=== PATIENT | male | born 1985 | race Caucasian/White ===

== ENCOUNTER 2022-06-11 14:41 | Emergency (ER) | payer OTHER, SELFPAY ==
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
--- NOTE | ~2022-06-11 | XR_ITS ---
EXAMINATION: XR cervical spine 3V CLINICAL INFORMATION: Pain COMPARISON: None TECHNIQUE: 3 views of the cervical spine were obtained. FINDINGS: The cervical spine is visualized to the level of C6-C7 on the lateral view. Reversal of the usual cervical spine lordosis centered at C4-C5 Vertebral body heights are maintained. Lateral masses of C1 are well aligned on C2. Visualized portion of the dens is intact. Advanced degenerative disc disease at C4-C5 through C6-C7, manifested by loss of disc space height and facet arthropathy. No prevertebral soft tissue swelling. XR/XR cervical spine 3V IMPRESSION: * Moderate spondylosis of the cervical spine, as above detailed, with reversal of the usual cervical spine lordosis centered at C5-C6.
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
[2022-06-11 15:30] VITALS: BP 150/97; PULSE 86; RESP 18; TEMP 37; O2SAT 98; BMI 30.9
[2022-06-11] MEDS: Ketorolac Tromethamine 30 MG/ML VIAL IM (17:59)
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
== END 2022-06-11 19:53 | disposition home or self-care (01) ==
PROVIDERS: Emergency Provider Student in an Organized Health Care Education/Training Program; PCP Internal Medicine
DX: S16.1XXA Strain of muscle, fascia and tendon at neck level, initial encounter (principal); S29.012A Strain of muscle and tendon of back wall of thorax, initial encounter; S39.012A Strain of muscle, fascia and tendon of lower back, initial encounter; M54.2 Cervicalgia; V43.52XA Car driver injured in collision with other type car in traffic accident, initial encounter; Y93.9 Activity, unspecified; Y92.410 Unspecified street and highway as the place of occurrence of the external cause; Y99.9 Unspecified external cause status; Z79.899 Other long term (current) drug therapy
CPT/HCPCS: 72040; 72072; 72100; 96372; 99283; 99284; J1885

== ENCOUNTER 2023-07-01 12:11 | Emergency (ER) | payer MEDICARE, OTHER, MEDICAID, SELFPAY ==
--- NOTE | ~2023-07-01 | US_ITS ---
EXAMINATION: US VENOUS ULTRASOUND WITH DOPPLER LOWER EXTREMITY, RIGHT CLINICAL INFORMATION: Right popliteal pain. COMPARISON: None available. TECHNIQUE: Ultrasound of the deep veins is performed from the hip to the calf with compression sonography and color and pulse Doppler assessment. Spectral analysis with color-flow imaging is performed. FINDINGS: There is normal venous compression and respiratory variation and augmented flow. The visualized common femoral vein, superficial femoral vein, profunda femoral vein, popliteal vein, and the trifurcation region shows no evidence of deep venous thrombosis. There is no significant popliteal fossa cyst. If the patient's symptoms persist, followup ultrasound in 5 days 7 days might be of value to exclude proximal propagation from a non-visualized calf vein. US/US venous duplex LE RT IMPRESSION: No DVT demonstrated in the right lower extremity.
--- NOTE | ~2023-07-01 | XR_ITS ---
EXAMINATION: XR CHEST 2 VIEW CLINICAL INFORMATION: Chest pain COMPARISON: None TECHNIQUE: PA and lateral views of the chest obtained. FINDINGS: The lungs are clear. There are no pleural effusions. The cardiomediastinal silhouette is normal. No rib fracture, bone lesion or pneumothorax is detected. XR/XR chest 2V IMPRESSION: No acute cardiopulmonary disease.
--- NOTE | 2023-07-01 12:12 | ECG_ITS ---
Test Reason : CHEST PAIN Blood Pressure : / mmHG Vent. Rate : 081 BPM Atrial Rate : 081 BPM P-R Int : 150 ms QRS Dur : 080 ms QT Int : 372 ms P-R-T Axes : 019 -07 017 degrees QTc Int : 432 ms Normal sinus rhythm with sinus arrhythmia Normal ECG No previous ECGs available Referred By: Ekta Fuentes Electronically Signed By:REUBEN MIDDLETON
[2023-07-01 12:27] VITALS: BP 145/95; PULSE 83; RESP 18; TEMP 36.3; O2SAT 97; BMI 33.5
--- NOTE | 2023-07-01 12:27 | ED_ITS ---
HPI - General Adult General Chief complaint: Chest Pain Stated complaint: chest pain Time Seen by Provider: 07/01/23 12:58 Source: patient Mode of arrival: ambulatory Limitations: no limitations History of Present Illness HPI narrative: 37-year-old male with no major medical problems presents with chest pain. The chest pain is left upper chest. This sharp stabbing pain. Pain is moderate to severe in nature. There is no clear relieving or exacerbating features. When he gets the pain lasts approximately 5 minutes. He has had multiple nonexertional episodes. Sometimes he has associated left arm numbness. The pain has been intermittent since yesterday afternoon. He does have some right popliteal pain but no lower extremity edema. He has no personal history of PE or DVT. However, his father approximately 20 years ago with a DVT/PE. Patient is fairly active. He has had no trauma, falls, injuries. He has had no significant new heavy lifting events. Patient denies any fevers, chills, cough or mucus production. Related Data Previous Rx's Medication Instructions Recorded acetaminophen 500 mg tablet 500 mg PO Q6H PRN fever or pain 06/11/22 (Tylenol Extra Strength) #14 tabs cyclobenzaprine 5 mg tablet 5 mg PO Q8H PRN pain (scale score 06/11/22 7-10) 5 days #14 tabs lidocaine 5 % topical patch 1 patch topical DAILY PRN pain #30 06/11/22 (Lidoderm) ea naproxen 500 mg tablet 500 mg PO BID PRN pain 10 days #20 06/11/22 tabs Allergies Allergy/AdvReac Type Severity Reaction Status Date / Time No Known Allergies Allergy Unverified 08/15/20 16:04 Review of Systems Review of Systems: CONSTITUTIONAL: Denies weight loss, fever and chills. HEENT: Denies changes in vision and hearing. RESPIRATORY: Denies SOB and cough. CV: Denies palpitations + CP. GI: Denies abdominal pain, nausea, vomiting and diarrhea. : Denies dysuria and urinary frequency. MSK: + myalgia and joint pain. SKIN: Denies rash and pruritus. NEUROLOGICAL: Denies headache and syncope. PSYCHIATRIC: Denies recent changes in mood. Denies anxiety and depression. All other ROS are negative unless in HPI [facility] Social History Social History Alcohol intake: current Alcohol intake frequency: holidays/special occasions only Smoked in Last 30 Days: No Use of substances other than those prescribed or required for medical reasons: No Advance Directives: No Advance Directives Information Provided: No Physical Exam ED Vital Signs: Vital Signs - 24 hr 07/01/23 12:27 07/01/23 13:26 07/01/23 14:00 Temperature 97.3 F 98.0 F Pulse Rate 83 73 64 Respiratory Rate 18 18 18 Blood Pressure 145/95 H 154/107 H 113/87 Pulse Oximetry 97 96 96 Oxygen Delivery Method Room Air Room Air BMI result Body Mass Index 33.5 GEN: Well developed, no acute distress, alert, oriented HEENT: Normocephalic, atraumatic, normal external ears, nose appears normal, no oropharyngeal edema or exudates Eyes: Normal to appearance Neck: Supple, no lymphadenopathy Respiratory: Talks in complete sentences, no respiratory distress, clear to auscultation bilaterally Cardiovascular: Regular rate and rhythm, no murmurs rubs or gallops Abdomen: Soft, nontender, nondistended, no guarding, no rebound Back: No CVA tenderness Extremities: No clubbing cyanosis or edema Neurologic: No focal neurologic deficits, cranial nerves 2-12 intact, strength is 5/5 bilaterally Skin: No rash Course Course Course Narrative: This is a rapid medical exam: Additional HPI, ROS, PE not included below will be deferred to primary provider. Patient is a 37-year-old male presenting to the emergency department with complaint of intermittent episodes of chest pain for the past several days. States some days it was one episode, today has had several episodes. Also reports right medial thigh pain which began today, denies injury to the area. Denies personal history of blood clots but states that his father from complications related to a DVT. BP elevated in triage, denies hx of HTN. Plan: EKG, labs, CXR Reevaluation(s) Reevaluation #1: The workup is complete. Cardiac enzymes are negative. That is essentially diagnostic actor 1 day of atypical chest pain with a nonischemic EKG. Additionally, he is ultrasound negative for DVT, D-dimer is negative. I do not believe patient warrants an emergent CT scan and a sterile out pulmonary embolus given no evidence of right heart strain, no sinus tachycardia and no hypoxia. Patient is aware that he can return any time for progressive symptoms at which point would recommend a CT angiogram. He has 0 comfortable with this plan. He will be discharged home. Time: 15:25 Medical Decision Making Medical Decision Making MDM Narrative: 37-year-old male with no significant medical problems but a past family history of DVT in his father side presents with left-sided chest pain that is atypical in nature, sharp, stabbing intermittent and brief in nature. Patient's ex amination is unremarkable. EKG done at triage demonstrates no acute ischemic changes or no evidence of right heart strain. I will obtain routine laboratory analysis including a troponin. If patient's troponin is negative, 1 day of intermittent atypical symptoms would be suggestive against myocardial infarction/NSTEMI. Will order a D-dimer on this particular patient. His PERC criteria are 0: PERC Rule for Pulmonary Embolism from [email or web address] on 07/01/2023 All calculations should be rechecked by clinician prior to use RESULT SUMMARY: 0 criteria No need for further workup, as <2% chance of PE. If no criteria are positive and clinician?s pre-test probability is <15%, PERC Rule criteria are satisfied. INPUTS: Age >=0 ?> 0 = No HR >=00 ?> 0 = No O? sat on room air ?> 0 = No Unilateral leg swelling ?> 0 = No Hemoptysis ?> 0 = No Recent surgery or trauma ?> 0 = No Prior PE or DVT ?> 0 = No Hormone use ?> 0 = No . However, given his family history this does at an at layer of suspicion. I will also obtain an ultrasound of the right lower extremity given his popliteal pain to rule out DVT. If these tests are negative, will discuss the need to perform a CT angiogram of the chest which I doubt is necessary at this time given normal vital signs, no evidence of right heart strain, no sinus tachycardia, no evidence of hypoxia, etc.. Atypical chest pain, musculoskeletal chest pain, chest wall pain, myocardial infarction, pericarditis, myocarditis, anxiety, stress, reflux, pneumonia, pulmonary embolus, dissection Arguing against musculoskeletal chest pain is and inability to reproduce the pain., pericarditis is unlikely given the lack of position allergy, no evidence of diffuse CT elevations and ST depressions. There is no evidence of pneumonia on examination, no hypoxia, cough, dyspnea. Is unlikely to be dissection given normal pulses bilaterally, atypical story and will obtain an x-ray to rule out widened mediastinum and apical cap. Differential Diagnosis Differential Diagnoses: The differential diagnosis associated with the presentation includes (See above) Admission/Observation Consideration of admission/observation: Escalation of care including admission/observation considered Lab Data MDM Lab Attestation statement: I reviewed the patient's lab results. 07/01/23 12:07/01/23 12: Labs: Lab Results 07/01/23 07/01/23 07/01/23 Range/Units 12:26 12: 12: WBC 6.8 (4.8-10.8) X10*3/uL RBC 4.94 (4.60-5.80) X10*6/uL Hgb 15.5 (14.0-18.0) g/dl Hct 44.8 (42.0-52.0) % MCV 90.7 (80.0-98.0) fL MCH 31.4 (27.0-33.0) pg MCHC 34.6 (31.0-36.0) g/dl RDW 11.7 (11.0-16.0) % Plt Count 290 (160-400) X10*3/uL MPV 9.4 (9.4-12.4) fL Immature Gran % (Auto) 0.3 (0.0-0.4) % Neut % (Auto) 62.2 (45-73) % Lymph % (Auto) 28.4 (20-40) % Bleck[place] % (Auto) 8.1 (2-11) % Eos % (Auto) 0.7 (0-4) % Baso % (Auto) 0.3 (0-2) % Lymph # (Auto) 1.9 (1.2-4.9) X10*3/uL [place]ck[place] # (Auto) 0.6 (0.1-1.2) X10*3/uL Eos # (Auto) 0.1 (0.0-0.4) X10*3/uL Baso # (Auto) 0.0 (0.0-0.2) X10*3/uL Abs Immat Gran (auto) 0.02 (0.00-0.03) X10*3/uL Absolute Neuts (auto) 4.2 (2.0-8.3) x10*3/uL Absolute Nucleated RBC 0.000 (0.0-0.012) X10*3/uL Nucleated RBC % (auto) 0.0 (0.0-0.2) /100WBC PT (11.1-13.3) SEC INR (0.9-1.1) D-Dimer High Sensitivty NG/ML Sodium 141 (135-145) mmol/L Potassium 3.5 (3.3-5.1) mmol/L Chloride 105 (96-108) mmol/L Carbon Dioxide 20 L (22-29) mmol/L Anion Gap 20 (12-20) BUN 14 (9-16) mg/dL Creatinine 0.87 (0.5-1.4) mg/dL Estim Creat Clear Calc 110.3 Estimated GFR > 60 Random Glucose 169 H (60-115) mg/dL Calcium 9.2 (8.4-10.2) mg/dL Total Bilirubin 0.8 (0.0-1.0) mg/dL AST 25 (5-37) U/L ALT 31 (0-40) U/L Alkaline Phosphatase 63 (39-117) U/L Troponin I High Sens < 2.7 (<3.5-35.0) ng/L Total Protein 6.9 (6.5-8.0) g/dL Albumin 4.1 (3.5-5.0) g/dL 07/01/23 07/01/23 Range/Units 12:26 13:27 WBC (4.8-10.8) X10*3/uL RBC (4.60-5.80) X10*6/uL Hgb (14.0-18.0) g/dl Hct (42.0-52.0) % MCV (80.0-98.0) fL MCH (27.0-33.0) pg MCHC (31.0-36.0) g/dl RDW (11.0-16.0) % Plt Count (160-400) X10*3/uL MPV (9.4-12.4) fL Immature Gran % (Auto) (0.0-0.4) % Neut % (Auto) (45-73) % Lymph % (Auto) (20-40) % Bleck[place] % (Auto) (2-11) % Eos % (Auto) (0-4) % Baso % (Auto) (0-2) % Lymph # (Auto) (1.2-4.9) X10*3/uL [place]ck[place] # (Auto) (0.1-1.2) X10*3/uL Eos # (Auto) (0.0-0.4) X10*3/uL Baso # (Auto) (0.0-0.2) X10*3/uL Abs Immat Gran (auto) (0.00-0.03) X10*3/uL Absolute Neuts (auto) (2.0-8.3) x10*3/uL Absolute Nucleated RBC (0.0-0.012) X10*3/uL Nucleated RBC % (auto) (0.0-0.2) /100WBC PT 11.5 (11.1-13.3) SEC INR 0.9 (0.9-1.1) D-Dimer High Sensitivty < 150 NG/ML Sodium (135-145) mmol/L Potassium (3.3-5.1) mmol/L Chloride (96-108) mmol/L Carbon Dioxide (22-29) mmol/L Anion Gap (12-20) BUN (9-16) mg/dL Creatinine (0.5-1.4) mg/dL Estim Creat Clear Calc Estimated GFR Random Glucose (60-115) mg/dL Calcium (8.4-10.2) mg/dL Total Bilirubin (0.0-1.0) mg/dL AST (5-37) U/L ALT (0-40) U/L Alkaline Phosphatase (39-117) U/L Troponin I High Sens (<3.5-35.0) ng/L Total Protein (6.5-8.0) g/dL Albumin (3.5-5.0) g/dL Troponin is negative. He does have an elevated blood sugar which is likely an acute stress reaction. This was discussed with the patient he will follow up as an outpatient. Independent Interpretation I performed an independent interpretation of an: EKG (Sinus rhythm heart rate 81, normal intervals, no acute ST elevations depressions, no ischemic changes. No evidence of right heart strain.), Plain X-Ray (S: No acute cardiopulmonary disease) and Ultrasound (Duplex ultrasound right lower extremity negative for DVT) Radiology Impression Discussion of test interpretation with radiology: I have reviewed the radiologist's reading. Radiologist Impression: XR/XR chest 2V IMPRESSION: No acute cardiopulmonary disease. ? Dictated By: Juan Roy MD Signed By: <Electronically signed by Juan Roy MD in [place]> 07/01/23 1254 . US/US venous duplex LE RT IMPRESSION: No DVT demonstrated in the right lower extremity. Dictated By: Jens Grullon MD Signed By: <Electronically signed by Jens Grullon MD in [place]> 07/01/23 1508 Prescription Management I considered prescription management with: Pain Medication Chronic Conditions Patient?s care impacted by: Other (Elevated blood pressure) Discharge Plan Discharge Clinical Impression: Chest pain, Hyperglycemia Patient Disposition: Home, Self-Care Instructions: Chest Pain (ED) Additional Instructions: Return any time for progressive chest pain, shortness of breath, palpitation or any other concerning symptoms. At that time, may be appropriate for you to have a CT scan angiogram of the chest. Otherwise follow-up with her primary care provider within the next few days. Prescriptions: No Action lidocaine [Lidoderm] 5 % adhesive patch,medicated 1 patch topical DAILY MDD remove after 12 hours PRN (Reason: pain) Qty: 30 0RF Rx Instructions: leave on most painful area for up to 12 hrs cyclobenzaprine 5 mg tablet 5 mg PO Q8H PRN (Reason: pain (scale score 7-10)) 5 Days Qty: 14 0RF acetaminophen [Tylenol Extra Strength] 500 mg tablet 500 mg PO Q6H PRN (Reason: fever or pain) Qty: 14 0RF naproxen 500 mg tablet 500 mg PO BID PRN (Reason: pain) 10 Days Qty: 20 0RF Referrals: Jermain Burgos MD [Primary Care Provider] - 2 days
[2023-07-01 12:32] LABS: MANUAL DIFF FLAG NO
[2023-07-01 12:34] LABS: Basophils Percent Auto 0.3 % (0-2); Eosinophils Absolute Auto 0.1 X10*3/uL (0.0-0.4); Eosinophils Percent Auto 0.7 % (0-4); Hematocrit 44.8 % (42.0-52.0); Hemoglobin 15.5 g/dl (14.0-18.0); Imm Gran Abs Auto 0.02 X10*3/uL (0.00-0.03); Imm Gran Pct Auto 0.3 % (0.0-0.4); Lymphocytes Absolute Auto 1.9 X10*3/uL (1.2-4.9); Lymphocytes Percent Auto 28.4 % (20-40); Mean Corpuscular HGB Conc 34.6 g/dl (31.0-36.0); Mean Corpuscular Hemoglobin 31.4 pg (27.0-33.0); Mean Corpuscular Volume 90.7 fL (80.0-98.0); Mean Platelet Volume 9.4 fL (9.4-12.4); Monocytes Absolute Auto 0.6 X10*3/uL (0.1-1.2); Monocytes Percent Auto 8.1 % (2-11); Neutrophils Absolute Auto 4.2 x10*3/uL (2.0-8.3); Neutrophils Percent Auto 62.2 % (45-73); Platelet Count 290 X10*3/uL (160-400); Red Blood Count 4.94 X10*6/uL (4.60-5.80); Red Cell Distribution Width 11.7 % (11.0-16.0); White Blood Count 6.8 X10*3/uL (4.8-10.8)
[2023-07-01 12:39] LABS: INTERNATIONAL NORM RATIO 0.9 (0.9-1.1); Prothrombin Time 11.5 SEC (11.1-13.3)
[2023-07-01 12:54] LABS: Alanine Aminotransferase 31 U/L (0-40); Albumin Level 4.1 g/dL (3.5-5.0); Alkaline Phosphatase 63 U/L (39-117); Anion Gap 20 (12-20); Aspartate Amino Transferase 25 U/L (5-37); Bilirubin Total 0.8 mg/dL (0.0-1.0); Blood Urea Nitrogen 14 mg/dL (9-16); Calcium 9.2 mg/dL (8.4-10.2); Carbon Dioxide 20 mmol/L (22-29); Chloride 105 mmol/L (96-108); Creatinine Clr Calc Pharmacy 110.3; Estimated Glomerular Filt Rate > 60; Glucose Random 169 mg/dL (60-115); Potassium 3.5 mmol/L (3.3-5.1); Sodium 141 mmol/L (135-145); Total Protein 6.9 g/dL (6.5-8.0)
[2023-07-01 13:07] LABS: Troponin-I High Sensitivity < 2.7 ng/L (<3.5-35.0)
[2023-07-01 13:26] VITALS: BP 154/107; PULSE 73; RESP 18; O2SAT 96
--- NOTE | 2023-07-01 13:34 | PC.NURSE ---
pt a&ox3, vss, nsr on the court recording monitor, pt c/o 2/10 chest pain that radiates to the LUE. pt verbalizes numbness/tingling down the left arm. that he has occasional nausea/palpitations but denies any other symptoms. tech alka labs and sent them. call schafer placed within reach.
[2023-07-01 14:00] VITALS: BP 113/87; PULSE 64; RESP 18; TEMP 36.7; O2SAT 96
[2023-07-01 14:10] LABS: D Dimer High Sensitivity < 150 NG/ML
--- NOTE | 2023-07-01 14:21 | PC.NURSE ---
a&ox3, vss, nsr on the chip mucker. pt verbalizing no change in pain level in his chest and LUE. x-ray bedside getting scans. call schafer placed within reach.
== END 2023-07-01 15:48 | disposition home or self-care (01) ==
PROVIDERS: Registered Nurse Emergency; Emergency Provider Emergency Medicine; PCP Internal Medicine
DX: R07.89 Other chest pain (principal); R73.9 Hyperglycemia, unspecified; R60.0 Localized edema; Z86.718 Personal history of other venous thrombosis and embolism; Z79.899 Other long term (current) drug therapy
CPT/HCPCS: 36415; 71046; 80053; 84484; 85025; 85379; 85610; 93005; 93971; 99284; 99285

== ENCOUNTER → 2023-07-01 12:12 | Outpatient (BNV) | payer MEDICARE, OTHER, MEDICAID, SELFPAY | PROVIDERS: Emergency Provider Emergency Medicine; PCP Internal Medicine; Visit Provider Internal Medicine | DX: I49.9 Cardiac arrhythmia, unspecified (principal) | CPT/HCPCS: 93010 ==

== ENCOUNTER 2023-07-14 07:08 | Emergency (ER) | payer MEDICARE, OTHER, MEDICAID, SELFPAY ==
--- NOTE | 2023-07-14 | ECG_ITS ---
Test Reason : cp Blood Pressure : / mmHG Vent. Rate : 079 BPM Atrial Rate : 079 BPM P-R Int : 156 ms QRS Dur : 084 ms QT Int : 370 ms P-R-T Axes : 039 001 020 degrees QTc Int : 424 ms Normal sinus rhythm Normal ECG When compared with ECG of 01-JUL-2023 12:18, No significant change was found Referred By: Generic ED Physician Electronically Signed By:BRADY SERVIN
--- NOTE | ~2023-07-14 | XR_ITS ---
EXAMINATION: XR CHEST CLINICAL INFORMATION: Chest pain. COMPARISON: Chest radiographs dated 07/01/2023. TECHNIQUE: 2 views of the chest were obtained. FINDINGS: No significant abnormality is noted involving the heart, lungs, mediastinum, bony thorax or soft tissues. XR/XR chest 2V IMPRESSION: No acute cardiopulmonary process.
[2023-07-14 07:14] VITALS: BP 127/87; PULSE 82; RESP 16; TEMP 37.1; O2SAT 99; BMI 30.1
--- NOTE | 2023-07-14 07:55 | ED_ITS ---
HPI - Chest Pain General Chief Complaint: Chest Pain Stated Complaint: Chest Pain Time Seen by Provider: 07/14/23 07:39 Source: patient and old records reviewed Mode of arrival: ambulatory Limitations: no limitations History of Present Illness HPI narrative: 37 yo male with anxiety just seen here 07/01 with negative DVT study, negative US and normal EKG and troponin - he comes back as he was sitting down last night and felt intermittent non exertional chest pain L side no radiation no reported other symptoms. It has resolved. No hx of CAD in family but his dad did have a PE. He himself has no hx of VTE and no travel or procedures. MD complaint: chest pain Onset (ago): hour(s) (12) Timing of current episode: now resolved Prior episodes: Yes Onset: during rest Pain location: left chest Pain radiation: none Severity: moderate Quality: sharp Relieving factors: nothing Exacerbating factors: nothing Treatment prior to arrival: none Related Data Previous Rx's Medication Instructions Recorded acetaminophen 500 mg tablet 500 mg PO Q6H PRN fever or pain 06/11/22 (Tylenol Extra Strength) #14 tabs cyclobenzaprine 5 mg tablet 5 mg PO Q8H PRN pain (scale score 06/11/22 7-10) 5 days #14 tabs lidocaine 5 % topical patch 1 patch topical DAILY PRN pain #30 06/11/22 (Lidoderm) ea naproxen 500 mg tablet 500 mg PO BID PRN pain 10 days #20 06/11/22 tabs Allergies Allergy/AdvReac Type Severity Reaction Status Date / Time No Known Allergies Allergy Unverified 08/15/20 16:04 Review of Systems Review of Systems: Constitutional : No Weight loss, No Fever, No Chills ENT/Mouth : No sore throat, No Rhinorrhea Eyes: No Eye Pain, No Swelling Cardiovascular : pos Chest Pain, no SOB, no Dyspnea on Exertion, No Orthopnea, No Edema, No Palpitations Respiratory : No Cough, No Sputum Gastrointestinal : no Nausea, No Vomiting, No Diarrhea, No abdominal Pain, No Hematochezia, No Melena Genitourinary : No Dysuria, No Urinary Frequency Musculoskeletal : No joint pain, No Myalgias, No Joint Swelling Skin : No Skin Lesions, No rash Neuro : No Weakness, No Numbness, No Dizziness, No Headache Psych : pos Anxiety/Panic, No Depression All other systems reviewed and are negative PMFSH Past Medical History Attestation statement: The following information was validated with the patient. Medical History Anxiety Social History Social History (Updated 07/14/23 @ 08:05 by Candi Whitman DO) Alcohol intake: current Alcohol intake frequency: holidays/special occasions only Patient Tobacco Use Status: Never used Tobacco Advance Directives: No Advance Directives Information Provided: No Physical Exam Vital Signs: Vital Signs: Last Vital Signs Temp 98.7 F 07/14/23 07:14 Pulse 68 07/14/23 08:31 Resp 19 07/14/23 08:31 BP 142/97 H 07/14/23 08:16 Pulse Ox 98 07/14/23 08:31 O2 Del Method Room Air 07/14/23 08:16 BMI result Body Mass Index 30.1 Appearance: Alert. Oriented X3. No acute distress. Eyes: Pupils equal, round and reactive to light. ENT: Pharynx normal. Neck: Normal inspection. Neck supple. CVS: Normal heart rate and rhythm. Pulses normal. Respiratory: No respiratory distress. Breath sounds normal. Abdomen: Soft and non-tender. Skin: Skin warm and dry. Normal skin color. Normal skin turgor. Extremities: No lower extremity edema. No calf ttp Neuro: Oriented X 3. No motor deficit. No sensory deficit. Medical Decision Making Medical Decision Making [facility] Narrative: 37 yo male with hx of anxiety here with recurrent atypical chest pain no hx of CAD or fam hx of CAD, PERC negative - just had negative DVT study and negative ddimer does not need repeat studies. He has no pain with bending forward and no recent URI to suggest pericarditis. At this time will obtain basic labs, trop x 1, EKG and CXR will refer him to his PCP. I suspect mostly atypical pain vs MSK. His pulses are intact and BP stable doubt dissection. Differential Diagnosis Differential Diagnoses: The differential diagnosis associated with the presentation includes atypical chest pain, anxiety, doubt VTE - PERC negative, distal pulses intact doubt dissection Admission/Observation Consideration of admission/observation: Escalation of care including admission/observation considered HEART SCORE = 0 has PCP can follow up as outpatient Lab Data [facility] Lab Attestation statement: I reviewed the patient's lab results. 07/14/23 08:05 07/14/23 08:05 Labs: Lab Results 07/14/23 07/14/23 Range/Units 08:05 08:05 WBC 5.4 (4.8-10.8) X10*3/uL RBC 4.88 (4.60-5.80) X10*6/uL Hgb 15.0 (14.0-18.0) g/dl Hct 43.8 (42.0-52.0) % MCV 89.8 (80.0-98.0) fL MCH 30.7 (27.0-33.0) pg MCHC 34.2 (31.0-36.0) g/dl RDW 11.7 (11.0-16.0) % Plt Count 286 (160-400) X10*3/uL MPV 9.5 (9.4-12.4) fL Immature Gran % (Auto) 0.4 (0.0-0.4) % Neut % (Auto) 61.5 (45-73) % Lymph % (Auto) 26.0 (20-40) % [place] % (Auto) 10.0 (2-11) % Eos % (Auto) 1.5 (0-4) % Baso % (Auto) 0.6 (0-2) % Lymph # (Auto) 1.4 (1.2-4.9) X10*3/uL [place] # (Auto) 0.5 (0.1-1.2) X10*3/uL Eos # (Auto) 0.1 (0.0-0.4) X10*3/uL Baso # (Auto) 0.0 (0.0-0.2) X10*3/uL Abs Immat Gran (auto) 0.02 (0.00-0.03) X10*3/uL Absolute Neuts (auto) 3.3 (2.0-8.3) x10*3/uL Absolute Nucleated RBC 0.000 (0.0-0.012) X10*3/uL Nucleated RBC % (auto) 0.0 (0.0-0.2) /100WBC Sodium 140 (135-145) mmol/L Potassium 4.0 (3.3-5.1) mmol/L Chloride 103 (96-108) mmol/L Carbon Dioxide 29 (22-29) mmol/L Anion Gap 12 (12-20) BUN 15 (9-16) mg/dL Creatinine 0.90 (0.5-1.4) mg/dL Estim Creat Clear Calc 101.2 Estimated GFR > 60 Random Glucose 109 (60-115) mg/dL Calcium 9.0 (8.4-10.2) mg/dL Total Bilirubin 0.6 (0.0-1.0) mg/dL Direct Bilirubin 0.3 (0.0-0.5) mg/dL AST 25 (5-37) U/L ALT 23 (0-40) U/L Alkaline Phosphatase 65 (39-117) U/L Total Protein 6.7 (6.5-8.0) g/dL Albumin 3.9 (3.5-5.0) g/dL Independent Interpretation I performed an independent interpretation of an: EKG and Plain X-Ray (normal ) Interpretation: Rate: 79 Rhythm: NSR [place]: normal Normal P waves. Normal JULIET. Normal QRS complex. ST T wave : no ALLAN, inverted T wave III qTC: normal prior studies: no acute ischemia The study has been interpreted contemporaneously by me. . Radiology Impression Discussion of test interpretation with radiology: I have reviewed the radiologist's reading. External Record Review External record reviewed: Inpatient record Discharge Plan Discharge Clinical Impression: Atypical chest pain Patient Disposition: Home, Self-Care Instructions: Chest Pain (ED) Additional Instructions: your EKG and chest xray were normal. your heart test was normal as well. you shon reyes had a full work up last visit for blood clots that were negative. at this time follow up with your doctor for further work up of your chest pain. return for increased shortness of breath, chest pain with exertion, fainting, fevers or concerns. Prescriptions: No Action lidocaine [Lidoderm] 5 % adhesive patch,medicated 1 patch topical DAILY MDD remove after 12 hours PRN (Reason: pain) Qty: 30 0RF Rx Instructions: leave on most painful area for up to 12 hrs cyclobenzaprine 5 mg tablet 5 mg PO Q8H PRN (Reason: pain (scale score 7-10)) 5 Days Qty: 14 0RF acetaminophen [Tylenol Extra Strength] 500 mg tablet 500 mg PO Q6H PRN (Reason: fever or pain) Qty: 14 0RF naproxen 500 mg tablet 500 mg PO BID PRN (Reason: pain) 10 Days Qty: 20 0RF
[2023-07-14 08:16] VITALS: BP 142/97; PULSE 60; RESP 14; O2SAT 97
[2023-07-14 08:31] VITALS: PULSE 68; RESP 19; O2SAT 98
[2023-07-14 08:36] LABS: MANUAL DIFF FLAG NO
[2023-07-14 08:40] LABS: Basophils Percent Auto 0.6 % (0-2); Eosinophils Absolute Auto 0.1 X10*3/uL (0.0-0.4); Eosinophils Percent Auto 1.5 % (0-4); Hematocrit 43.8 % (42.0-52.0); Imm Gran Abs Auto 0.02 X10*3/uL (0.00-0.03); Imm Gran Pct Auto 0.4 % (0.0-0.4); Lymphocytes Absolute Auto 1.4 X10*3/uL (1.2-4.9); Mean Corpuscular HGB Conc 34.2 g/dl (31.0-36.0); Mean Corpuscular Hemoglobin 30.7 pg (27.0-33.0); Mean Corpuscular Volume 89.8 fL (80.0-98.0); Mean Platelet Volume 9.5 fL (9.4-12.4); Monocytes Absolute Auto 0.5 X10*3/uL (0.1-1.2); Neutrophils Absolute Auto 3.3 x10*3/uL (2.0-8.3); Neutrophils Percent Auto 61.5 % (45-73); Platelet Count 286 X10*3/uL (160-400); Red Blood Count 4.88 X10*6/uL (4.60-5.80); Red Cell Distribution Width 11.7 % (11.0-16.0); White Blood Count 5.4 X10*3/uL (4.8-10.8)
[2023-07-14 08:50] LABS: Alanine Aminotransferase 23 U/L (0-40); Albumin Level 3.9 g/dL (3.5-5.0); Alkaline Phosphatase 65 U/L (39-117); Anion Gap 12 (12-20); Aspartate Amino Transferase 25 U/L (5-37); Bilirubin Direct 0.3 mg/dL (0.0-0.5); Bilirubin Total 0.6 mg/dL (0.0-1.0); Blood Urea Nitrogen 15 mg/dL (9-16); Carbon Dioxide 29 mmol/L (22-29); Chloride 103 mmol/L (96-108); Creatinine Clr Calc Pharmacy 101.2; Estimated Glomerular Filt Rate > 60; Glucose Random 109 mg/dL (60-115); Sodium 140 mmol/L (135-145); Total Protein 6.7 g/dL (6.5-8.0)
[2023-07-14 08:57] LABS: Troponin-I High Sensitivity 3.4 ng/L (<3.5-35.0)
[2023-07-14 09:29] VITALS: BP 122/71; PULSE 70; RESP 19; O2SAT 98
== END 2023-07-14 09:31 | disposition home or self-care (01) ==
PROVIDERS: Emergency Provider Emergency Medicine; PCP Advanced Practice Midwife
DX: R07.89 Other chest pain (principal); Z79.899 Other long term (current) drug therapy
CPT/HCPCS: 36415; 71046; 80048; 80076; 84484; 85025; 93005; 99283; 99284